=== PATIENT | female | born 1985 | race Caucasian/White ===

== ENCOUNTER → 2017-02-28 | Outpatient (CLI) | payer OTHER ==
[~2017-02-28] VITALS: Ht 154.9 cm; Wt 98.1 kg
[~2017-02-28] MED LIST: AMLO10TA2 PO; CHLORHEXIDINE GLUCONATE 2 % 1 PACK (2 CLOTHS) TOPICAL PRN; FERR325T18 PO; HYDR25TA5 PO; LACTATED RINGER'S 1000 ML IV PRN; LIDOCAINE HCL 1% PF 5 ML AMPULE OTHER ONE; METOPROLOL TARTRATE 25 MG TAB PO PRN; POTA-163 PO; POVIDONE IODINE 5% (ANTISEPSIS KIT) 4 APPLICATIONS EACH NARE PRN; PROPOFOL 200 MG/20 ML AMP IV ONE; SODIUM CHLORID 0.9% 500 ML IV PRN
--- NOTE | 2017-02-28 12:31 | GIPROC ---
[facility] [address] [facility] [place], [address] EGD PROCEDURE REPORT EXAM DATE: 02/28/2017 PATIENT NAME: Keiry Bergeron MR #: [id number] BIRTHDATE: 1985 ATTENDING: Sang Roberts MD ORDER #: [id number] CLOTH EXAMINER: Giovana Montes Jones, Julie, and Korin Carnes STATUS: outpatient INDICATIONS: The patient is a 31 yr old female here for an EGD due to Preoperative assessment sleeve planning PROCEDURE PERFORMED: EGD w/ biopsy MEDICATIONS: Per Anesthesia and None. TOPICAL ANESTHETIC: none CONSENT: The patient understands the risks and benefits of the procedure and understands that these risks include, but are not limited to: sedation, allergic reaction, infection, perforation and/or bleeding. Alternative means of evaluation and treatment include, among others: physical exam, x-rays, and/or surgical intervention. The patient elects to proceed with this endoscopic procedure. medical equipment was checked for proper function. Hand hygiene and appropriate measures for infection prevention was taken. After the risks, benefits and alternatives of the procedure were thoroughly explained, Informed consent was verified, confirmed and timeout was successfully executed by the treatment team. The patient was anesthetized with anesthesia and the Pentax EG-[id number] endoscope was introduced through the mouth and advanced to the first portion of the duodenum. The antrum was biopsied for H. Pylori. Retroflexed views revealed no abnormalities The gastroscope was then slowly withdrawn and removed. The endoscopy was otherwise normal. ADVERSE EVENTS: There were no complications. IMPRESSIONS: 1. Normal endoscopy otherwise 2. Retroflexed views revealed no abnormalities RECOMMENDATIONS: 1. Await biopsy results. Biopsy results will not be ready for 7-10 days. If you don't hear from us in two weeks, call our office for biopsy results. 2. Cleared for Bariatric Surgery PATIENT CONDITION: fair DISPOSITION: Home REPEAT EXAM: NONE Sang Roberts MD eSigned: Sang Roberts MD 02/28/2017 12:31 PM cc: Sang Roberts MD
[2017-02-28 13:12] VITALS: BP 115/77; PULSE 78; RESP 16; TEMP 97.4; O2SAT 99
== END ==
LOC: HSDC 09:46
PROVIDERS: ATTEND Surgery
DX: Z01.818 Encounter for other preprocedural examination (principal); E66.01 Morbid (severe) obesity due to excess calories; Z68.41 Body mass index [BMI] 40.0-44.9, adult; Z72.4 Inappropriate diet and eating habits
CPT/HCPCS: 00740; 43239; 88305; 88312; J7120

== ENCOUNTER 2017-05-07 05:40 | Inpatient (IN) | payer OTHER ==
[~2017-05-07] VITALS: Ht 154.9 cm; Wt 96.9 kg
[~2017-05-07 05:40] MED LIST changes: -CHLORHEXIDINE GLUCONATE 2 % 1 PACK (2 CLOTHS) TOPICAL PRN; -LACTATED RINGER'S 1000 ML IV PRN; -LIDOCAINE HCL 1% PF 5 ML AMPULE OTHER ONE; -METOPROLOL TARTRATE 25 MG TAB PO PRN; -POVIDONE IODINE 5% (ANTISEPSIS KIT) 4 APPLICATIONS EACH NARE PRN; -PROPOFOL 200 MG/20 ML AMP IV ONE; -SODIUM CHLORID 0.9% 500 ML IV PRN
[2017-05-07] MEDS ORDERED: METOPROLOL TARTRATE 25 MG TAB PO PRN (06:45)
[2017-05-07] MEDS ORDERED: ACETAMINOPHEN 1000 MG/100 ML 100 ML IV SCH (06:45)
[2017-05-07] MEDS ORDERED: SCOPOLAMINE 1.5 MG PATCH T-DERMAL SCH (06:45)
[2017-05-07] MEDS ORDERED: ceFAZolin 2 GM PREMIX 50 ML IV SCH (06:45)
[2017-05-07] MEDS ORDERED: APREPITANT 40 MG CAP PO SCH (06:45)
[2017-05-07] MEDS ORDERED: LACTATED RINGER'S 1000 ML IV PRN (06:45)
[2017-05-07] MEDS ORDERED: CHLORHEXIDINE GLUCONATE 2 % 1 PACK (2 CLOTHS) TOPICAL PRN (06:45)
[2017-05-07] MEDS ORDERED: POVIDONE IODINE 5% (ANTISEPSIS KIT) 4 APPLICATIONS EACH NARE PRN (06:45)
[2017-05-07] MEDS ORDERED: SODIUM CHLORID 0.9% 500 ML IV PRN (06:45)
[2017-05-07] MEDS ORDERED: ONDANSETRON HCL 4 MG/2 ML VIAL IV PUSH SCH (06:45)
[2017-05-07] MEDS ORDERED: metroNIDAZOLE 500 MG INJ 100 ML IV ONE (09:10)
[2017-05-07] MEDS ORDERED: BUPIVACAINE/EPINEPHRINE 0.25% 50 ML VIAL ONE (09:11)
[2017-05-07] MEDS ORDERED: fentaNYL CITRATE 250 MCG/5 ML AMP ONE (09:58)
[2017-05-07] MEDS ORDERED: MIDAZOLAM HCL 2 MG/2 ML VIAL ONE (09:59)
--- NOTE | 2017-05-07 10:19 | HHI.PR ---
Immediate Post Op Note Procedure Date: May 07, 2017 Pre Op Diagnosis: morbid obesity bmi 40, htn Post Op Diagnosis: same Surgeon: Sang Roberts MD Data Modeling Architect(s): erika Procedure: lap vertical sleeve gastrectomy Findings: no leak Complications: none Specimen(s) removed: none Estimated blood loss: 5cc Anesthesia: General Drains: None Patient to: PACU Patient Condition: Good Sang Roberts MD May 07, 2017 10:19
[2017-05-07] MEDS ORDERED: diphenhydrAMINE HCL ELIXIR 12.5 MG/5 ML CUP PO PRN (11:30)
[2017-05-07] MEDS ORDERED: diphenhydrAMINE HCL 50 MG/ML VIAL IV PUSH PRN (11:30)
[2017-05-07] MEDS ORDERED: ACETAMINOPHEN 325MG/HYDROcodone 7.5MG/15ML UDC PO PRN ×2 (11:30)
[2017-05-07] MEDS: PANTOPRAZOLE SOD 40 MG DELAYED RELEASE TAB PO SCH (11:30)
[2017-05-07] MEDS: SODIUM CHLORIDE 0.9% FLUSH 10 ML FLUSH IV FLUSH SCH ×2 (11:30→21:00)
[2017-05-07] MEDS ORDERED: SODIUM CHLORIDE 0.9% FLUSH 10 ML FLUSH IV FLUSH PRN (11:30)
[2017-05-07] MEDS ORDERED: MORPHINE SULFATE 30 MG/30 ML PCA IV SCH (11:45)
[2017-05-07] MEDS ORDERED: NALOXONE HCL 0.4 MG/ML AMP IV PUSH PRN (11:45)
[2017-05-07] MEDS ORDERED: *morphine SULFATE 4 MG/ML PERIprocedure ONLY ONE (11:48)
[2017-05-07] MEDS ORDERED: SUGAMMADEX SODIUM 200 MG/2 ML VIAL IV PUSH ONE (11:50)
[2017-05-07] MEDS ORDERED: *ONDANSETRON 4 MG VIAL PERIprocedural Use ONLY ONE (11:58)
[2017-05-07] MEDS ORDERED: DEXAMETHASONE SOD PHOS 4 MG/ML VIAL IV ONE (12:00)
[2017-05-07] MEDS ORDERED: ePHEDrine/NS 25 MG/5 ML SYRINGE IV ONE (12:00)
[2017-05-07] MEDS ORDERED: DO NOT ADM ANY ANTICOAGULANT DRUGS PRN (12:00)
[2017-05-07] MEDS ORDERED: LACTATED RINGER'S 1000 ML INJ 1,000 ML IV ONE (12:00)
[2017-05-07] MEDS ORDERED: PHENYLEPH/NS 1000 MCG/10 ML SYR IV ONE (12:00)
[2017-05-07] MEDS ORDERED: Post-op Orders (for Pharmacy) OTHER ONE (12:00)
[2017-05-07] MEDS ORDERED: LIDOCAINE HCL 1% PF 5 ML SYRINGE OTHER ONE (12:00)
[2017-05-07] MEDS ORDERED: PROPOFOL 200 MG/20 ML AMP IV ONE (12:00)
[2017-05-07] MEDS ORDERED: ONDANSETRON HCL 4 MG/2 ML VIAL IV ONE (12:00)
[2017-05-07] MEDS ORDERED: ROCURONIUM INJ 50 MG/5 ML SYRINGE IV PUSH ONE (12:00)
[2017-05-07] MEDS ORDERED: *PROMETHAZINE 25 MG/ML VIAL PERIprocedural use ONLY ONE (12:10)
[2017-05-07] MEDS: D5-1/2 NS + KCL 20 MEQ INJ 1,000 ML IV SCH ×2 (12:30→23:17)
[2017-05-07] MEDS: METOCLOPRAMIDE HCL 10 MG/2 ML VIAL IV PUSH SCH ×2 (12:37→18:30)
[2017-05-07] MEDS: ACETAMINOPHEN 1000 MG/100 ML 100 ML IV SCH ×2 (13:30→18:30)
[2017-05-07] MEDS: PCA - TOTAL MG MORPHINE DELIVERED PER SHIFT SCH ×2 (14:00→22:00)
[2017-05-07 16:00] VITALS: BP 98/58; PULSE 71; RESP 18; TEMP 96; O2SAT 94
[2017-05-07] MEDS: ENOXAPARIN SODIUM 40 MG/0.4 ML SYRINGE SQ SCH (16:03)
[2017-05-07] MEDS: ONDANSETRON HCL 4 MG/2 ML VIAL IV PUSH PRN (18:39)
[2017-05-07 20:00] VITALS: BP 98/54; PULSE 90; RESP 18; TEMP 96.5; O2SAT 97
[2017-05-08] VITALS: BP 105/55; PULSE 77; RESP 20; TEMP 98.3; O2SAT 96
[2017-05-08] MEDS: ACETAMINOPHEN 1000 MG/100 ML 100 ML IV SCH ×2 (00:27→06:05)
[2017-05-08] MEDS: METOCLOPRAMIDE HCL 10 MG/2 ML VIAL IV PUSH SCH ×2 (00:28→06:05)
[2017-05-08] MEDS: metroNIDAZOLE 500 MG INJ 100 ML IV SCH ×2 (02:10→08:47)
[2017-05-08] MEDS: D5-1/2 NS + KCL 20 MEQ INJ 1,000 ML IV SCH ×3 (03:29→19:26)
[2017-05-08 04:00] VITALS: BP 101/57; PULSE 69; RESP 17; TEMP 98.5; O2SAT 96
[2017-05-08] MEDS: PCA - TOTAL MG MORPHINE DELIVERED PER SHIFT SCH (06:00)
[2017-05-08 08:00] VITALS: BP 107/59; PULSE 73; RESP 17; TEMP 97.7; O2SAT 93
[2017-05-08 08:36] LABS: AUTOMATED NEUTROPHIL # 8.4 TH/MM3 (1.8-7.7); HEMATOCRIT 33.9 % (35.0-46.0); HEMOGLOBIN 11.6 GM/DL (11.6-15.3); LYMPH % 12.9 % (9.0-44.0); LYMPHOCYTE # 1.3 TH/MM3 (1.0-4.8); MEAN CELL VOLUME 80.2 FL (80.0-100.0); MEAN CORPUSCULAR HEMOGLOBIN 27.4 PG (27.0-34.0); MEAN CORPUSCULAR HGB CONC 34.2 % (32.0-36.0); MEAN PLATELET VOLUME 8.8 FL (7.0-11.0); MONO % 5.3 % (0.0-8.0); MONOCYTE # 0.5 TH/MM3 (0-0.9); NEUT % 81.8 % (16.0-70.0); PLATELET COUNT 333 TH/MM3 (150-450); RED BLOOD COUNT 4.23 MIL/MM3 (4.00-5.30); RED CELL DISTRIBUTION WIDTH 15.3 % (11.6-17.2); WHITE BLOOD COUNT 10.3 TH/MM3 (4.0-11.0)
[2017-05-08] MEDS: SODIUM CHLORIDE 0.9% FLUSH 10 ML FLUSH IV FLUSH SCH ×2 (08:47→19:27)
[2017-05-08] MEDS: PANTOPRAZOLE SOD 40 MG DELAYED RELEASE TAB PO SCH (08:47)
[2017-05-08 08:55] LABS: BICARBONATE 25.5 MEQ/L (21.0-32.0); CALCIUM 8.6 MG/DL (8.5-10.1); CREATININE 0.71 MG/DL (0.50-1.00); MAGNESIUM 2.1 MG/DL (1.5-2.5)
[2017-05-08 12:00] VITALS: BP 122/73; PULSE 71; RESP 21; TEMP 98.7; O2SAT 99
--- NOTE | 2017-05-08 12:01 | HHI.PR ---
Subjective Subjective Notes Sitting up in chair Complains of some gas Going slow with fluids Objective Vitals/I&O Vital Signs Date Time Temp Pulse Resp B/P (MAP) Pulse Ox O2 Delivery O2 Flow Rate FiO2 05/08/17 09:32 21 05/08/17 08:00 97.7 73 17 107/59 (75) 93 05/07/17 15:00 Room Air 05/07/17 12:30 2 Labs Laboratory Tests Test 05/08/17 06:18 White Blood Count 10.3 Red Blood Count 4.23 Hemoglobin 11.6 Hematocrit 33.9 Mean Corpuscular Volume 80.2 Mean Corpuscular Hemoglobin 27.4 Mean Corpuscular Hemoglobin Concent 34.2 Red Cell Distribution Width 15.3 Platelet Count 333 Mean Platelet Volume 8.8 Neutrophils (%) (Auto) 81.8 Lymphocytes (%) (Auto) 12.9 Monocytes (%) (Auto) 5.3 Eosinophils (%) (Auto) 0.0 Basophils (%) (Auto) 0.0 Neutrophils # (Auto) 8.4 Lymphocytes # (Auto) 1.3 Monocytes # (Auto) 0.5 Eosinophils # (Auto) 0.0 Basophils # (Auto) 0.0 CBC Comment DIFF FINAL Differential Comment Blood Urea Nitrogen 7 Creatinine 0.71 Random Glucose 115 Calcium Level 8.6 Magnesium Level 2.1 Sodium Level 138 Potassium Level 3.1 Chloride Level 104 Carbon Dioxide Level 25.5 Anion Gap 9 Estimat Glomerular Filtration Rate 95 Cardiovascular: Regular Lungs: Clear Abdomen: Post-op tenderness Extremities: Perfused Wound Wound : Wound Location: Abdomen Appearance: Clean & Dry A/P Assessment and Plan 31yo F POD# 1 laparoscopic vertical sleeve gastrectomy -Levsin for gas -Continue with frequent ambulation -Increase PO fluids to goal -D/C VICE PRESIDENT and transition to oral pain medications Discharge Planning D/C home today if tolerates fluid goal Joan Turner May 08, 2017 12:01
[2017-05-08] MEDS ORDERED: METOCLOPRAMIDE HCL 10 MG/2 ML VIAL IV PUSH PRN (13:00)
[2017-05-08] MEDS: POTASSIUM CHLOR 10 MEQ PREMIX 100 ML IV SCH ×3 (13:10→16:54)
[2017-05-08] MEDS ORDERED: HYOSCYAMINE SOLN 0.125 MG/ML 15 ML BTL PO PRN (13:30)
[2017-05-08] MEDS: HYOSCYAMINE SOLN 0.125 MG/ML 15 ML BTL PO SCH ×2 (14:28→17:50)
[2017-05-08 16:00] VITALS: BP 134/71; PULSE 81; RESP 17; TEMP 99; O2SAT 97
[2017-05-08] MEDS: ENOXAPARIN SODIUM 40 MG/0.4 ML SYRINGE SQ SCH (16:54)
[2017-05-08 20:00] VITALS: BP 137/93; PULSE 76; RESP 16; TEMP 98.5; O2SAT 97
[2017-05-08] MEDS: ONDANSETRON HCL 4 MG/2 ML VIAL IV PUSH PRN (22:03)
[2017-05-09] VITALS: BP 107/67; PULSE 80; RESP 16; TEMP 99.5; O2SAT 92
[2017-05-09] MEDS: D5-1/2 NS + KCL 20 MEQ INJ 1,000 ML IV SCH (03:36)
[2017-05-09 07:07] LABS: BICARBONATE 23.9 MEQ/L (21.0-32.0); CALCIUM 8.5 MG/DL (8.5-10.1); CREATININE 0.68 MG/DL (0.50-1.00)
[2017-05-09] MEDS: PANTOPRAZOLE SOD 40 MG DELAYED RELEASE TAB PO SCH (07:59)
[2017-05-09] MEDS: HYOSCYAMINE SOLN 0.125 MG/ML 15 ML BTL PO SCH ×2 (07:59→12:37)
[2017-05-09 08:00] VITALS: BP 134/82; PULSE 76; RESP 17; TEMP 98.3; O2SAT 96
[2017-05-09] MEDS: SODIUM CHLORIDE 0.9% FLUSH 10 ML FLUSH IV FLUSH SCH (08:00)
[2017-05-09] MEDS ORDERED: HYOS0.1231 PO (08:36)
--- NOTE | 2017-05-09 11:37 | MP ---
cc: GLORIA ROBERTS MD DATE OF SURGERY: 05/07/2017. PREOPERATIVE DIAGNOSIS: 1. Morbid obesity with a BMI of 40. 2. Hypertension. POSTOPERATIVE DIAGNOSIS: 1. Morbid obesity with a BMI of 40. 2. Hypertension. PROCEDURE PERFORMED: Laparoscopic sleeve gastrectomy over a 36-Green[place]ic ViSiGi bougie. SURGEON: Dr. Gloria Roberts. FUR BLOWING MACHINE OPERATOR: Dr. Galo. ANESTHESIA: GETA. IV FLUIDS: See anesthesia sheet. ESTIMATED BLOOD LOSS: 5 cc. DRAINS: None. COMPLICATIONS None. WOUND CLASSIFICATION: Clean. FINDINGS: No leak with methylene blue. SPECIMENS: None. INDICATIONS FOR THE PROCEDURE: The patient is a 31-year-old female who presented with multiple attempts at weight loss. She has morbid obesity with a BMI of 40 and hypertension. She underwent a thorough, full workup and decision was made for a sleeve gastrectomy. DESCRIPTION OF THE PROCEDURE IN DETAIL: The patient was taken to the operating room suite and placed in the supine position. She was prepped and draped in the usual sterile fashion after induction with general endotracheal anesthesia. A brief time out was done stating the correct patient, procedure and surgical site and we were all in agreement with this. Attention was first directed 15 cm distal to the xiphoid. Local anesthetic was injected. A stab jaiden incision was made with a #15 blade. The 5 mm Opiport was introduced. Pneumoperitoneum was obtained with 50 mm. On cursory inspection, no evidence of injury. The patient was placed in reverse Trendelenburg position and planed to the right. The right upper quadrant port liver retractor was placed to retract the left lower lobe of the liver. Several other ports were placed also including 15 mm right lower quadrant port followed by two 5 mm left lower quadrant ports. The was taken down using harmonic scalpel all the way up but 5 cm distal to the pylorus and carried towards the angle of His. The posterior ligamentous attachments were taken and dissected. Following this, a 36-Green[place]ic ViSiGi bougie was advanced down the pylorus and division of the stomach to create the sleeve gastrectomy was done 5 cm from the pylorus and carried up all the way to the angle of His approximately 1 cm from the GE junction. The Endo-NABOR was used initially with a black load followed by gold loads and green loads with reinforced Seamguard. Methylene blue was instilled through the ViSiGi without evidence of extravasation. The sleeve was noted to be relatively tight with somewhat thickened stomach wall as well. The Seamguard was sutured with #2 running V-locked suture to the gastrocolic ligament. Evicel was used as well to control all bleeding points and to reinforce the staple line. The stomach was removed from the 15 mm port site and a #0 Vicryl was used to approximate the 15 mm port site fascia and the pneumoperitoneum was removed and all ports removed. 4-0 Monocryl used to close the subcuticular sutures. Sterile dressings including Mastisol and Steri-Strips placed. The patient tolerated the procedure well and there were no intraoperative complications. All lap and instrument counts were correct at the end of the procedure. The patient was extubated and taken stable to the post-anesthesia care unit. MD AUBREY Durbin/MARLENY /9:20 PM /11:22 AM
--- NOTE | 2017-05-09 11:50 | HHI.PR ---
Subjective Subjective Notes Pain and nausea better controlled today Tolerating PO fluid goal Objective Vitals/I&O Vital Signs Date Time Temp Pulse Resp B/P (MAP) Pulse Ox O2 Delivery O2 Flow Rate FiO2 05/09/17 08:00 98.3 76 17 134/82 (99) 96 05/08/17 09:32 21 05/07/17 15:00 Room Air 05/07/17 12:30 2 Labs Laboratory Tests Test 05/09/17 06:05 Blood Urea Nitrogen 6 Creatinine 0.68 Random Glucose 102 Calcium Level 8.5 Sodium Level 139 Potassium Level 3.6 Chloride Level 106 Carbon Dioxide Level 23.9 Anion Gap 9 Estimat Glomerular Filtration Rate 100 Abdomen: Post-op tenderness Extremities: Perfused Wound Wound : Wound Location: Abdomen Appearance: Clean & Dry A/P Assessment and Plan 31yo F POD# 2 laparoscopic vertical sleeve gastrectomy -Continue with frequent ambulation -Ok to use Miralax for any constipation -Levsin Rx given for home -Increase fluids as tolerated Discharge Planning D/C home today Joan Turner May 09, 2017 11:50
[2017-05-09 12:00] VITALS: BP 119/88; PULSE 64; RESP 17; TEMP 97.7; O2SAT 97
== END 2017-05-09 13:08 | disposition home or self-care (01) | DRG 621 ==
LOC: HSDI 05:40 → N07A 15:12
PROVIDERS: ADMIT Surgery; ATTEND Surgery
PROC: 0DB64Z3 Excision of Stomach, Percutaneous Endoscopic Approach, Vertical (ICD-10-PCS; principal; 2017-05-07 09:59)
DX: E66.01 Morbid (severe) obesity due to excess calories (principal); I10 Essential (primary) hypertension; Z68.41 Body mass index [BMI] 40.0-44.9, adult; K59.00 Constipation, unspecified; R11.0 Nausea; R14.3 Flatulence; Z88.8 Allergy status to other drugs, medicaments and biological substances
CPT/HCPCS: 80048; 83735; 85025; 94150; J0131; J0690; J1100; J1650; J2250; J2270; J2370; J2405; J2550; J2765; J3010; J3480; J7120; J8501